=== PATIENT | male | born 1960 | race Caucasian/White ===

== ENCOUNTER → 2016-12-11 | Outpatient (CLI) | payer OTHER ==
[~2016-12-11] VITALS: Ht 182.9 cm; Wt 64.8 kg
[~2016-12-11] MED LIST: AMOX TR-K CLV1 EAC4 PO; AUGMENTIN875 MG PO; Aspirin E.C. PO; CARDIZEM CD120 MG PO; CARDIZEM90 MG PO; CEPHALEXIN500 MG PO; CIPRO500 MG PO; CIPROFLOXACIN500 M1 PO; COLACE100 MG PO; COUMADIN1 MG; COUMADIN1 MG PO; COUMADIN3 MG PO; COUMADIN5 MG PO; COUMADIN6 MG PO; Coumadin Protocol PO; DESYREL 150 MG150 MG PO; DESYREL100 MG PO; DUONEB 2.5-0.5 M3 ML AEROSOL; EASY COMFORT I1 EAC6 MC; ELIQUIS5 MG PO; FUROSEMIDE20 MG PO; FUROSEMIDE40 MG PO; GLUCOPHAGE XR1000 MG PO; HYDRALAZINE HCL50 MG PO; HYDROCODON-ACE1 EAC7 PO; IBUPROFEN400 MG PO; LANTUS 10100 UNITS/ SC; LEVEMIR100 UNIT/2 SC; LEVOFLOXACIN750 MG PO; LIPITOR80 MG PO; LISINOPRIL-HCT1 EAC3 PO; LISINOPRIL10 MG PO; LISINOPRIL2.5 MG PO; LISINOPRIL40 MG PO; LO-DOSE ASPIRIN81 M1 PO; LO-DOSE ASPIRIN81 M2 PO; LOPRESSOR25 MG PO; LOPRESSOR50 MG PO; METFORMIN HCL1000 M3 PO; METFORMIN HCL1000 MG PO; METFORMIN HCL500 MG PO; METOPROLOL SUCC25 MG PO; METOPROLOL TART25 MG PO; METOPROLOL TART50 MG PO; MORPHINE SULFAT15 M1 PO; MORPHINE SULFAT15 MG PO; MOVE IT ALONG100 MG PO; MYCOSTATIN1 APPLICAT TP; NEBULIZER MC; NICOTINE PATCH1 EAC2 TD; NORCO 5/3251 TABLET PO; NOVOLOG MI100 UNIT/M SC; OMNICEF300 MG PO; ONE TOUCH LANC1 EACH MC; ONE TOUCH ULTR1 EAC4 MC; ONE TOUCH ULTR1 EACH MC; OXAYDO5 MG PO; PLAVIX75 MG PO; PRAVACHOL40 MG PO; PRAVASTATIN SOD40 MG PO; PRAVASTATIN SOD80 MG PO; PREDNISONE10 MG PO; Plavix PO; SANTYL30 GM TP; SERTRALINE HCL50 MG PO; TRAZODONE HCL50 MG PO; TYLENOL ARTHRI650 MG PO; TYLENOL REGULA325 MG PO; VENTOLIN HFA18 GM IH; VITAMIN D-32000 UNI2 PO; VITAMIN D31000 UNI2 PO; WARFARIN SODIUM3 MG PO; XARELTO20 MG PO; ZESTORETIC 20-1 EACH PO; ZESTRIL20 MG PO; ZOLOFT50 MG PO
[2016-12-11 10:22] LABS: POINT-OF-CARE METER ID UU13113694
[2016-12-11 11:47] LABS: POINT-OF-CARE METER ID UU13113819
== END | disposition home or self-care (01) ==
LOC: AMB 09:09
PROVIDERS: Internal Medicine
DX: Z12.11 Encounter for screening for malignant neoplasm of colon (principal); D12.2 Benign neoplasm of ascending colon; D12.3 Benign neoplasm of transverse colon; D12.4 Benign neoplasm of descending colon; Z93.3 Colostomy status; E11.9 Type 2 diabetes mellitus without complications; I10 Essential (primary) hypertension; I48.91 Unspecified atrial fibrillation; Z79.01 Long term (current) use of anticoagulants; Z86.19 Personal history of other infectious and parasitic diseases; J44.9 Chronic obstructive pulmonary disease, unspecified; F17.200 Nicotine dependence, unspecified, uncomplicated; E78.5 Hyperlipidemia, unspecified; F79 Unspecified intellectual disabilities; I73.9 Peripheral vascular disease, unspecified; Z79.82 Long term (current) use of aspirin; Z79.84 Long term (current) use of oral hypoglycemic drugs; Z88.1 Allergy status to other antibiotic agents
CPT/HCPCS: 82948; 88305; J0360

== ENCOUNTER 2017-05-01 18:57 | Inpatient (IN) | payer OTHER ==
[~2017-05-01] VITALS: Ht 182.9 cm; Wt 70.2 kg
[2017-05-01 19:41] LABS: INTER. NORMALIZED RATIO 1.2; PROTHROMBIN TIME 13.7 SEC (10.2-12.9)
[2017-05-01 19:44] LABS: CHLORIDE 95 mEq/L (99-109); PTT 30.7 SEC (25-37); SODIUM 133 mEq/L (136-147)
[2017-05-01 19:46] LABS: EOSINOPHIL (%) 0.4 % (0-5); HEMATOCRIT 32.1 % (38.0-50.0); IMMATURE GRANULOCYTE (%) 0.6 % (0.0-0.7); IMMATURE GRANULOCYTE COUNT 0.1 K/uL; INSTRUMENT ABS NEUTROPHIL CT 8.2 K/uL; LYMPHOCYTE COUNT 0.9 K/uL (1.0-2.8); MCH 25.5 PG (29.0-34.0); MCHC 34.3 G/DL (30.0-36.0); MCV 74.3 FL (86-99); MONOCYTE COUNT 0.4 K/uL (0-0.8); NEUTROPHIL (%) 85.2 % (45-76); NEUTROPHIL COUNT 8.2 K/uL (1.8-6.4); PLATELET COUNT 297 K/uL (156-360); RBC DIS.WIDTH-CV 14.1 % (11.8-14.6); RBC DIS.WIDTH-SD 37.9 % (39-53); RED BLOOD COUNT 4.32 M/uL (4.00-5.50); WHITE BLOOD COUNT 9.7 K/uL (4.1-10.2)
[2017-05-01 19:47] LABS: GLUCOSE 129 mg/dL (70-99)
[2017-05-01 19:48] LABS: ANION GAP 13 MEQ/L (2-14); TOTAL BILIRUBIN 0.5 mg/dL (0.0-1.0)
[2017-05-01 19:50] LABS: ALKALINE PHOSPHATASE 92 IU/L (3-129); GFR ESTIMATE (CALCULATED) > 59 mL/min/
[2017-05-01 19:51] LABS: UREA NITROGEN (BUN) 69 mg/dL (9-23)
[2017-05-01 19:52] LABS: DIRECT BILIRUBIN 0.3 mg/dL (0.0-0.3)
[2017-05-01 19:54] LABS: LIPASE 19 U/L (1.0-51.0)
[2017-05-01 19:56] LABS: TROP-I INTERPRETATION NEGATIVE
[2017-05-01 20:07] LABS: POTASSIUM 1.9 mEq/L (3.7-5.4)
[2017-05-02 01:00] VITALS: BP 161/74
[2017-05-02 02:10] LABS: METH RESISTANT S AUREUS PCR POSITIVE (NEGATIVE)
[2017-05-02 02:30] LABS: MAGNESIUM 0.9 mg/dL (1.3-2.7)
[2017-05-02 02:30] LABS: PROBE CHECK PASS
[2017-05-02 03:30] VITALS: BP 140/68
[2017-05-02 07:46] LABS: Estimated Average Glucose 148 mg/dL (70-123); HEMOGLOBIN A1c (GLYCOHEMOGLOB) 6.8 % HGB (Below 5.7)
[2017-05-02 08:30] VITALS: BP 129/79
[2017-05-02 09:21] LABS: EOSINOPHIL (%) 2.2 % (0-5); EOSINOPHIL COUNT 0.2 K/uL (0-0.3); HEMATOCRIT 27.6 % (38.0-50.0); IMMATURE GRANULOCYTE (%) 0.4 % (0.0-0.7); INSTRUMENT ABS NEUTROPHIL CT 5.2 K/uL; LYMPHOCYTE COUNT 1.2 K/uL (1.0-2.8); MCH 25.2 PG (29.0-34.0); MCHC 33.3 G/DL (30.0-36.0); MCV 75.6 FL (86-99); MONOCYTE (%) 4.5 % (3-12); MONOCYTE COUNT 0.3 K/uL (0-0.8); NEUTROPHIL (%) 75.6 % (45-76); NEUTROPHIL COUNT 5.2 K/uL (1.8-6.4); PLATELET COUNT 230 K/uL (156-360); RBC DIS.WIDTH-CV 14.6 % (11.8-14.6); RBC DIS.WIDTH-SD 39.8 % (39-53); RED BLOOD COUNT 3.65 M/uL (4.00-5.50); WHITE BLOOD COUNT 6.9 K/uL (4.1-10.2)
[2017-05-02 09:54] LABS: ANION GAP 12 MEQ/L (2-14); CHLORIDE 105 MEQ/L (99-109); GFR ESTIMATE (CALCULATED) > 59 mL/min/; GLUCOSE 104 mg/dL (70-99); POTASSIUM 2.8 MEQ/L (3.7-5.4); SAMPLE HEMOLYSIS CHECK 0; SAMPLE ICTERIC CHECK 0; SAMPLE LIPEMIA CHECK 0; SODIUM 139 MEQ/L (136-147); UREA NITROGEN (BUN) 52 mg/dL (9-23)
[2017-05-02 12:15] VITALS: BP 135/76
[2017-05-02 16:47] VITALS: BP 135/60
[2017-05-02 18:09] LABS: ADD MIUA? YES; BILIRUBIN NEGATIVE; BLOOD MODERATE; COLOR YELLOW ((YELLOW)); GLUCOSE (STRIP) NEGATIVE; KETONES NEGATIVE; LEUKOCYTES SMALL; NITRITE NEGATIVE; PROTEIN (STRIP) 30; SPECIFIC GRAVITY 1.011 (1.000-1.030); UROBILINOGEN 0.2 MG/DL (0.2-1.0)
[2017-05-02 18:18] LABS: BACTERIA NONE SEEN /HPF; EPITHELIAL CELLS RARE /HPF; MUCUS NONE SEEN /LPF; RED BLOOD CELLS 0-5 /HPF (0-5); UCUL ADDED? NO; WHITE BLOOD CELLS 0-5 /HPF (0-5)
[2017-05-02 20:41] VITALS: BP 153/67
[2017-05-03 00:31] VITALS: BP 152/77
[2017-05-03 05:17] LABS: EOSINOPHIL (%) 2.3 % (0-5); EOSINOPHIL COUNT 0.2 K/uL (0-0.3); HEMATOCRIT 27.2 % (38.0-50.0); IMMATURE GRANULOCYTE (%) 0.5 % (0.0-0.7); INSTRUMENT ABS NEUTROPHIL CT 4.7 K/uL; LYMPHOCYTE COUNT 1.4 K/uL (1.0-2.8); MCHC 32.4 G/DL (30.0-36.0); MCV 77.3 FL (86-99); MEAN PLAT.VOLUME 9.2 uM^3 (9.0-12.4); MONOCYTE (%) 4.6 % (3-12); MONOCYTE COUNT 0.3 K/uL (0-0.8); NEUTROPHIL (%) 71.6 % (45-76); NEUTROPHIL COUNT 4.7 K/uL (1.8-6.4); PLATELET COUNT 210 K/uL (156-360); RBC DIS.WIDTH-CV 14.9 % (11.8-14.6); RED BLOOD COUNT 3.52 M/uL (4.00-5.50); WHITE BLOOD COUNT 6.6 K/uL (4.1-10.2)
[2017-05-03 05:45] LABS: ANION GAP 9 MEQ/L (2-14); CHLORIDE 105 MEQ/L (99-109); GFR ESTIMATE (CALCULATED) > 59 mL/min/; GLUCOSE 82 mg/dL (70-99); MAGNESIUM 1.3 mg/dl (1.3-2.7); SAMPLE HEMOLYSIS CHECK 0; SAMPLE ICTERIC CHECK 0; SAMPLE LIPEMIA CHECK 0; SODIUM 136 MEQ/L (136-147); UREA NITROGEN (BUN) 36 mg/dL (9-23)
[2017-05-03 05:57] VITALS: BP 126/63
[2017-05-03 08:07] VITALS: BP 140/83
[2017-05-03 08:21] LABS: POINT-OF-CARE USER ID ENVKC36
[2017-05-03 11:48] VITALS: BP 156/79
[2017-05-03 11:50] LABS: POINT-OF-CARE METER ID UU13113698; POINT-OF-CARE USER ID ENVKC36
[2017-05-03 15:11] LABS: MAGNESIUM 1.3 mg/dl (1.3-2.7); POTASSIUM 3.1 MEQ/L (3.7-5.4)
[2017-05-03 16:00] VITALS: BP 149/78
[2017-05-03 17:00] LABS: POINT-OF-CARE USER ID ENVKC36
[2017-05-03 20:08] VITALS: BP 153/67
[2017-05-04 00:29] VITALS: BP 118/84
[2017-05-04] MEDS ORDERED: DESYREL 150 MG150 MG PO (00:43)
[2017-05-04 04:17] VITALS: BP 116/75
[2017-05-04 07:55] LABS: POINT-OF-CARE METER ID UU13113781
[2017-05-04 08:00] VITALS: BP 124/68
[2017-05-04 08:32] LABS: HEMATOCRIT 25.6 % (38.0-50.0); MCH 25.4 PG (29.0-34.0); MCV 79.3 FL (86-99); PLATELET COUNT 197 K/uL (156-360); RBC DIS.WIDTH-CV 15.2 % (11.8-14.6); RBC DIS.WIDTH-SD 44.3 % (39-53); RED BLOOD COUNT 3.23 M/uL (4.00-5.50); WHITE BLOOD COUNT 6.3 K/uL (4.1-10.2)
[2017-05-04 09:20] LABS: ANION GAP 4 MEQ/L (2-14); CHLORIDE 109 MEQ/L (99-109); GFR ESTIMATE (CALCULATED) > 59 mL/min/; SAMPLE HEMOLYSIS CHECK 0; SAMPLE ICTERIC CHECK 0; SAMPLE LIPEMIA CHECK 0; SODIUM 137 MEQ/L (136-147); UREA NITROGEN (BUN) 32 mg/dL (9-23)
[2017-05-04 09:21] LABS: GLUCOSE 112 mg/dL (70-99); POTASSIUM 4.3 MEQ/L (3.7-5.4)
[2017-05-04 12:00] VITALS: BP 140/70
[2017-05-04 15:28] VITALS: BP 140/70
[2017-05-04 17:37] LABS: POINT-OF-CARE METER ID UU13113781
[2017-05-04 18:00] LABS: INTERNAL CONTROL VALID? YES
[2017-05-04 21:06] VITALS: BP 179/80
[2017-05-04 21:29] LABS: POINT-OF-CARE USER ID ENVMNS
[2017-05-05] VITALS (8 sets, daily range): BP systolic 148–233; BP diastolic 76–108
[2017-05-05 08:50] LABS: HEMATOCRIT 28.8 % (38.0-50.0); MCH 25.1 PG (29.0-34.0); MCHC 31.6 G/DL (30.0-36.0); MCV 79.6 FL (86-99); MEAN PLAT.VOLUME 9.3 uM^3 (9.0-12.4); PLATELET COUNT 210 K/uL (156-360); RBC DIS.WIDTH-CV 15.3 % (11.8-14.6); RBC DIS.WIDTH-SD 44.2 % (39-53); RED BLOOD COUNT 3.62 M/uL (4.00-5.50); WHITE BLOOD COUNT 8.8 K/uL (4.1-10.2)
[2017-05-05 10:07] LABS: ANION GAP 8 MEQ/L (2-14); CHLORIDE 112 MEQ/L (99-109); GFR ESTIMATE (CALCULATED) > 59 mL/min/; GLUCOSE 95 mg/dL (70-99); POTASSIUM 4.7 MEQ/L (3.7-5.4); SAMPLE HEMOLYSIS CHECK 0; SAMPLE ICTERIC CHECK 0; SAMPLE LIPEMIA CHECK 0; SODIUM 137 MEQ/L (136-147); UREA NITROGEN (BUN) 31 mg/dL (9-23)
[2017-05-05 21:10] LABS: POINT-OF-CARE METER ID UU13113781
[2017-05-06 01:00] VITALS: BP 152/70
[2017-05-06 04:12] VITALS: BP 142/75
[2017-05-06 09:00] VITALS: BP 196/91
[2017-05-06 12:30] VITALS: BP 133/73
[2017-05-06 17:00] VITALS: BP 130/78
[2017-05-06 19:57] VITALS: BP 106/68
[2017-05-07 00:47] VITALS: BP 140/61
[2017-05-07 04:26] VITALS: BP 139/74
[2017-05-07 05:55] LABS: EOSINOPHIL (%) 2.2 % (0-5); EOSINOPHIL COUNT 0.2 K/uL (0-0.3); HEMATOCRIT 25.2 % (38.0-50.0); IMMATURE GRANULOCYTE (%) 0.4 % (0.0-0.7); INSTRUMENT ABS NEUTROPHIL CT 5.4 K/uL; LYMPHOCYTE COUNT 1.7 K/uL (1.0-2.8); MCH 25.9 PG (29.0-34.0); MCHC 32.1 G/DL (30.0-36.0); MCV 80.5 FL (86-99); MEAN PLAT.VOLUME 9.4 uM^3 (9.0-12.4); MONOCYTE (%) 4.7 % (3-12); MONOCYTE COUNT 0.4 K/uL (0-0.8); NEUTROPHIL (%) 70.2 % (45-76); NEUTROPHIL COUNT 5.4 K/uL (1.8-6.4); PLATELET COUNT 253 K/uL (156-360); RBC DIS.WIDTH-CV 15.9 % (11.8-14.6); RBC DIS.WIDTH-SD 46.5 % (39-53); RED BLOOD COUNT 3.13 M/uL (4.00-5.50); WHITE BLOOD COUNT 7.6 K/uL (4.1-10.2)
[2017-05-07 07:21] LABS: ANION GAP 6 MEQ/L (2-14); CHLORIDE 114 MEQ/L (99-109); GFR ESTIMATE (CALCULATED) > 59 mL/min/; GLUCOSE 88 mg/dL (70-99); IRON 21 MCG/DL (35-150); POTASSIUM 4.1 MEQ/L (3.7-5.4); SAMPLE HEMOLYSIS CHECK 0; SAMPLE ICTERIC CHECK 0; SAMPLE LIPEMIA CHECK 0; SODIUM 139 MEQ/L (136-147); UREA NITROGEN (BUN) 25 mg/dL (9-23)
[2017-05-07 08:02] LABS: POINT-OF-CARE METER ID UU13113781
[2017-05-07 08:40] VITALS: BP 128/80
[2017-05-07 11:31] LABS: POINT-OF-CARE METER ID UU13113698
[2017-05-07 12:19] VITALS: BP 148/78
[2017-05-07 16:43] LABS: POINT-OF-CARE METER ID UU13113698
[2017-05-07 16:45] VITALS: BP 142/82
[2017-05-07 20:00] VITALS: BP 158/79
[2017-05-07 21:18] LABS: POINT-OF-CARE METER ID UU13113781
[2017-05-08] VITALS (7 sets, daily range): BP systolic 130–197; BP diastolic 80–89
[2017-05-08 08:07] LABS: POINT-OF-CARE METER ID UU13113781; POINT-OF-CARE USER ID ENVKC36
[2017-05-08 11:25] LABS: HEMATOCRIT 24.7 % (38.0-50.0); MCHC 30.8 G/DL (30.0-36.0); MCV 81.3 FL (86-99); MEAN PLAT.VOLUME 9.4 uM^3 (9.0-12.4); PLATELET COUNT 274 K/uL (156-360); RBC DIS.WIDTH-CV 16.2 % (11.8-14.6); RBC DIS.WIDTH-SD 47.9 % (39-53); RED BLOOD COUNT 3.04 M/uL (4.00-5.50); WHITE BLOOD COUNT 7.6 K/uL (4.1-10.2)
[2017-05-08 12:01] LABS: ANION GAP 5 MEQ/L (2-14); CHLORIDE 115 MEQ/L (99-109); GFR ESTIMATE (CALCULATED) > 59 mL/min/; GLUCOSE 121 mg/dL (70-99); SAMPLE HEMOLYSIS CHECK 0; SAMPLE ICTERIC CHECK 0; SAMPLE LIPEMIA CHECK 0; SODIUM 138 MEQ/L (136-147); UREA NITROGEN (BUN) 22 mg/dL (9-23)
[2017-05-08 12:11] LABS: POINT-OF-CARE METER ID UU13113803; POINT-OF-CARE USER ID ENVKC36
[2017-05-08 17:02] LABS: POINT-OF-CARE METER ID UU13113781; POINT-OF-CARE USER ID ENVKC36
[2017-05-08 21:27] LABS: POINT-OF-CARE METER ID UU13113803
[2017-05-09 03:35] VITALS: BP 151/83
[2017-05-09 08:12] LABS: POINT-OF-CARE METER ID UU13113781
[2017-05-09 09:10] VITALS: BP 168/78
[2017-05-09 09:17] LABS: POC NON-PRINT COM 1 ND
[2017-05-09 12:09] LABS: POINT-OF-CARE METER ID UU14117124
[2017-05-09 12:31] LABS: HEMATOCRIT 25.9 % (38.0-50.0); MCH 24.7 PG (29.0-34.0); MCHC 30.5 G/DL (30.0-36.0); MCV 80.9 FL (86-99); MEAN PLAT.VOLUME 9.3 uM^3 (9.0-12.4); PLATELET COUNT 296 K/uL (156-360); RBC DIS.WIDTH-CV 16.6 % (11.8-14.6); RBC DIS.WIDTH-SD 48.7 % (39-53); WHITE BLOOD COUNT 7.4 K/uL (4.1-10.2)
[2017-05-09 12:41] LABS: ANION GAP 6 MEQ/L (2-14); CHLORIDE 116 MEQ/L (99-109); POTASSIUM 4.8 MEQ/L (3.7-5.4); SAMPLE HEMOLYSIS CHECK 0; SAMPLE ICTERIC CHECK 0; SAMPLE LIPEMIA CHECK 0; SODIUM 139 MEQ/L (136-147)
[2017-05-09 12:47] LABS: GFR ESTIMATE (CALCULATED) > 59 mL/min/; GLUCOSE 130 mg/dL (70-99); UREA NITROGEN (BUN) 22 mg/dL (9-23)
[2017-05-09 16:19] VITALS: BP 146/88
[2017-05-09 16:21] LABS: POINT-OF-CARE METER ID UU14117124
[2017-05-09 20:45] VITALS: BP 209/88
[2017-05-09 21:40] LABS: POINT-OF-CARE METER ID UU14117124
[2017-05-10 00:54] VITALS: BP 140/88
[2017-05-10 05:35] LABS: HEMATOCRIT 22.8 % (38.0-50.0); MCH 25.4 PG (29.0-34.0); MCHC 31.1 G/DL (30.0-36.0); MCV 81.4 FL (86-99); MEAN PLAT.VOLUME 9.1 uM^3 (9.0-12.4); PLATELET COUNT 283 K/uL (156-360); RBC DIS.WIDTH-CV 17.1 % (11.8-14.6); RBC DIS.WIDTH-SD 50.4 % (39-53); WHITE BLOOD COUNT 8.1 K/uL (4.1-10.2)
[2017-05-10 07:15] LABS: POINT-OF-CARE METER ID UU14188577
[2017-05-10 10:24] VITALS: BP 189/87
[2017-05-10 11:53] LABS: POINT-OF-CARE METER ID UU14188577
[2017-05-10 13:50] VITALS: BP 152/82
[2017-05-10 17:32] LABS: POINT-OF-CARE METER ID UU14188577
[2017-05-10 20:23] VITALS: BP 140/94
[2017-05-10 23:44] VITALS: BP 129/58
[2017-05-11 03:42] VITALS: BP 142/91
[2017-05-11 06:29] LABS: EOSINOPHIL (%) 1.7 % (0-5); EOSINOPHIL COUNT 0.1 K/uL (0-0.3); HEMATOCRIT 23.9 % (38.0-50.0); IMMATURE GRANULOCYTE (%) 0.6 % (0.0-0.7); INSTRUMENT ABS NEUTROPHIL CT 4.7 K/uL; LYMPHOCYTE COUNT 1.7 K/uL (1.0-2.8); MCH 25.9 PG (29.0-34.0); MCHC 31.8 G/DL (30.0-36.0); MCV 81.6 FL (86-99); MEAN PLAT.VOLUME 9.3 uM^3 (9.0-12.4); MONOCYTE (%) 4.8 % (3-12); MONOCYTE COUNT 0.3 K/uL (0-0.8); NEUTROPHIL (%) 68.3 % (45-76); NEUTROPHIL COUNT 4.7 K/uL (1.8-6.4); PLATELET COUNT 338 K/uL (156-360); RBC DIS.WIDTH-CV 17.3 % (11.8-14.6); RED BLOOD COUNT 2.93 M/uL (4.00-5.50); WHITE BLOOD COUNT 6.9 K/uL (4.1-10.2)
[2017-05-11 07:01] LABS: ALKALINE PHOSPHATASE 70 IU/L (3-129); ANION GAP 7 MEQ/L (2-14); CHLORIDE 118 MEQ/L (99-109); GFR ESTIMATE (CALCULATED) > 59 mL/min/; POTASSIUM 4.9 MEQ/L (3.7-5.4); SAMPLE HEMOLYSIS CHECK 0; SAMPLE ICTERIC CHECK 0; SAMPLE LIPEMIA CHECK 0; SODIUM 142 MEQ/L (136-147); TOTAL BILIRUBIN 0.2 MG/DL (0.0-1.0); UREA NITROGEN (BUN) 21 mg/dL (9-23)
[2017-05-11 07:07] LABS: GLUCOSE 81 mg/dL (70-99)
[2017-05-11 08:21] VITALS: BP 144/88
[2017-05-11 12:01] VITALS: BP 158/84
[2017-05-11 12:14] LABS: POINT-OF-CARE METER ID UU14208753
[2017-05-11 16:02] VITALS: BP 190/92
[2017-05-11 20:29] VITALS: BP 150/80
[2017-05-11 23:50] VITALS: BP 148/72
[2017-05-12 06:52] VITALS: BP 148/62
[2017-05-12 08:15] LABS: HEMATOCRIT 24.1 % (38.0-50.0); MCH 25.3 PG (29.0-34.0); MCHC 31.1 G/DL (30.0-36.0); MCV 81.4 FL (86-99); PLATELET COUNT 325 K/uL (156-360); RBC DIS.WIDTH-CV 17.4 % (11.8-14.6); RED BLOOD COUNT 2.96 M/uL (4.00-5.50)
[2017-05-12 08:54] LABS: ANION GAP 8 MEQ/L (2-14); CHLORIDE 117 MEQ/L (99-109); GFR ESTIMATE (CALCULATED) > 59 mL/min/; GLUCOSE 82 mg/dL (70-99); POTASSIUM 4.5 MEQ/L (3.7-5.4); SAMPLE HEMOLYSIS CHECK 0; SAMPLE ICTERIC CHECK 0; SAMPLE LIPEMIA CHECK 0; SODIUM 142 MEQ/L (136-147); UREA NITROGEN (BUN) 17 mg/dL (9-23)
[2017-05-12 11:47] LABS: POINT-OF-CARE METER ID UU14208753
[2017-05-12 14:08] LABS: ABSOLUTE RETICULOCYTE CT. 0.1 M/uL (0.02-0.08); IMM.RETIC FRACTION 18.1 % (3-19); RETIC HGB EQUIVALENT 31.3 (28-36); RETICULOCYTE COUNT 2.1 % (0.5-1.8)
[2017-05-12 15:11] LABS: BASE EXCESS -5.5 mEq/L (-3 to +3); BICARBONATE 17.9 mEq/L (22-26); COMMENTS - BLOOD GASES A+C+; METHEMOGLOBIN 1.7 % (0-1.5); PCO2 27 mm Hg (35-45); PO2 66 mm Hg (80-100); SITE LB; pH 7.43 (7.35-7.45)
[2017-05-12 15:12] LABS: TOTAL RESP RATE 16 resp/min
[2017-05-12 18:35] LABS: POINT-OF-CARE METER ID UU14188577
[2017-05-12 23:17] LABS: POINT-OF-CARE METER ID UU14188577
[2017-05-12 23:54] VITALS: BP 172/85
[2017-05-13 05:55] VITALS: BP 120/78
[2017-05-13 06:17] LABS: POINT-OF-CARE METER ID UU14188577
[2017-05-13 08:35] LABS: HEMATOCRIT 22.7 % (38.0-50.0); MCH 26.5 PG (29.0-34.0); MCHC 32.2 G/DL (30.0-36.0); MCV 82.5 FL (86-99); MEAN PLAT.VOLUME 9.7 uM^3 (9.0-12.4); PLATELET COUNT 329 K/uL (156-360); RBC DIS.WIDTH-SD 53.1 % (39-53); RED BLOOD COUNT 2.75 M/uL (4.00-5.50); WHITE BLOOD COUNT 7.1 K/uL (4.1-10.2)
[2017-05-13 08:55] VITALS: BP 136/70
[2017-05-13 08:59] LABS: ANION GAP 7 MEQ/L (2-14); CHLORIDE 116 MEQ/L (99-109); GFR ESTIMATE (CALCULATED) > 59 mL/min/; GLUCOSE 85 mg/dL (70-99); POTASSIUM 4.1 MEQ/L (3.7-5.4); SAMPLE HEMOLYSIS CHECK 0; SAMPLE ICTERIC CHECK 0; SAMPLE LIPEMIA CHECK 0; SODIUM 143 MEQ/L (136-147); UREA NITROGEN (BUN) 14 mg/dL (9-23)
[2017-05-13 12:27] LABS: POINT-OF-CARE METER ID UU14188577
[2017-05-13 19:53] VITALS: BP 180/90
[2017-05-13 22:19] LABS: POINT-OF-CARE METER ID UU14208753
[2017-05-13 23:04] VITALS: BP 161/79
[2017-05-14] VITALS (7 sets, daily range): BP systolic 131–188; BP diastolic 65–90
[2017-05-14 07:14] LABS: HEMATOCRIT 23.6 % (38.0-50.0); MCH 26.3 PG (29.0-34.0); MCHC 32.2 G/DL (30.0-36.0); MCV 81.7 FL (86-99); MEAN PLAT.VOLUME 9.5 uM^3 (9.0-12.4); PLATELET COUNT 343 K/uL (156-360); RBC DIS.WIDTH-CV 17.9 % (11.8-14.6); RBC DIS.WIDTH-SD 52.2 % (39-53); RED BLOOD COUNT 2.89 M/uL (4.00-5.50); WHITE BLOOD COUNT 6.7 K/uL (4.1-10.2)
[2017-05-14 10:16] LABS: TYPE OF FLUID PLEURAL
[2017-05-14 10:20] LABS: TYPE OF FLUID PLEURAL
[2017-05-14 10:54] LABS: LACTATE DEHYDROGENASE 226 IU/L (20-246)
[2017-05-14 10:55] LABS: GLUCOSE 112 mg/dL (70-99)
[2017-05-14 11:20] LABS: BODY FLUID LDH 55 IU/L; BODY FLUID PROTEIN < 3.0 G/DL
[2017-05-14 11:38] LABS: BODY FLUID EOSINOPHILS 0 % (0-25); BODY FLUID RBC'S < 1000 /MM^3 (0-100); BODY FLUID WBC'S 73 /MM^3 (0-500); MONONUCLEAR WBC'S 22 %; POLYNUCLEAR WBC'S 78 % (0-25)
[2017-05-14 11:42] LABS: POINT-OF-CARE METER ID UU14188577
[2017-05-14 11:49] LABS: BODY FLUID LDH 55 IU/L; BODY FLUID PROTEIN < 3.0 G/DL
[2017-05-14 11:51] LABS: BODY FLUID EOSINOPHILS 4 % (0-25); BODY FLUID RBC'S < 1000 /MM^3 (0-100); BODY FLUID WBC'S 144 /MM^3 (0-500); MONONUCLEAR WBC'S 18 %; POLYNUCLEAR WBC'S 78 % (0-25)
[2017-05-14 16:36] LABS: POINT-OF-CARE METER ID UU14188577
[2017-05-15 04:06] VITALS: BP 118/65
[2017-05-15 07:06] LABS: POINT-OF-CARE METER ID UU14117124
[2017-05-15 08:16] VITALS: BP 128/57
[2017-05-15 10:43] LABS: MCH 25.6 PG (29.0-34.0); MCHC 30.8 G/DL (30.0-36.0); MCV 83.1 FL (86-99); MEAN PLAT.VOLUME 9.3 uM^3 (9.0-12.4); PLATELET COUNT 343 K/uL (156-360); RBC DIS.WIDTH-CV 18.3 % (11.8-14.6); RBC DIS.WIDTH-SD 54.1 % (39-53); RED BLOOD COUNT 3.01 M/uL (4.00-5.50); WHITE BLOOD COUNT 7.6 K/uL (4.1-10.2)
[2017-05-15 11:18] LABS: ANION GAP 8 MEQ/L (2-14); CHLORIDE 108 MEQ/L (99-109); SAMPLE HEMOLYSIS CHECK 1; SAMPLE ICTERIC CHECK 0; SAMPLE LIPEMIA CHECK 0; SODIUM 138 MEQ/L (136-147)
[2017-05-15 11:24] LABS: GFR ESTIMATE (CALCULATED) > 59 mL/min/; GLUCOSE 96 mg/dL (70-99); UREA NITROGEN (BUN) 14 mg/dL (9-23)
[2017-05-15 11:38] LABS: POINT-OF-CARE METER ID UU14188577
[2017-05-15 16:20] LABS: POINT-OF-CARE METER ID UU14188577
[2017-05-15 16:56] VITALS: BP 158/86
[2017-05-15 20:18] VITALS: BP 164/78
[2017-05-15 21:33] LABS: POINT-OF-CARE METER ID UU14188577
[2017-05-16] VITALS (14 sets, daily range): BP systolic 124–202; BP diastolic 60–95
[2017-05-16 04:16] LABS: BODY FLUID PH 8.3 (())
[2017-05-16 07:08] LABS: HEMATOCRIT 20.8 % (38.0-50.0); MCH 25.8 PG (29.0-34.0); MCHC 31.3 G/DL (30.0-36.0); MCV 82.5 FL (86-99); MEAN PLAT.VOLUME 9.2 uM^3 (9.0-12.4); PLATELET COUNT 334 K/uL (156-360); RBC DIS.WIDTH-CV 18.3 % (11.8-14.6); RBC DIS.WIDTH-SD 54.4 % (39-53); RED BLOOD COUNT 2.52 M/uL (4.00-5.50); WHITE BLOOD COUNT 7.5 K/uL (4.1-10.2)
[2017-05-16 07:24] LABS: ANION GAP 6 MEQ/L (2-14); CHLORIDE 109 MEQ/L (99-109); GFR ESTIMATE (CALCULATED) > 59 mL/min/; GLUCOSE 67 mg/dL (70-99); POTASSIUM 3.7 MEQ/L (3.7-5.4); SAMPLE HEMOLYSIS CHECK 0; SAMPLE ICTERIC CHECK 0; SAMPLE LIPEMIA CHECK 0; SODIUM 138 MEQ/L (136-147); UREA NITROGEN (BUN) 14 mg/dL (9-23)
[2017-05-16 11:59] LABS: POINT-OF-CARE METER ID UU14117124
[2017-05-16 22:29] LABS: MCV 82.4 FL (86-99)
[2017-05-17 04:00] VITALS: BP 154/72
[2017-05-17 07:16] LABS: POINT-OF-CARE METER ID UU14208753
[2017-05-17 07:18] VITALS: BP 150/80
[2017-05-17 11:24] VITALS: BP 160/70
[2017-05-17 12:34] LABS: POINT-OF-CARE METER ID UU14188577
[2017-05-17 16:00] VITALS: BP 155/65
[2017-05-17 17:09] LABS: POINT-OF-CARE METER ID UU14208753
[2017-05-17 19:21] VITALS: BP 158/66
[2017-05-17 21:20] LABS: POINT-OF-CARE METER ID UU14117124
[2017-05-18] VITALS (8 sets, daily range): BP systolic 150–190; BP diastolic 70–100
[2017-05-18 06:37] LABS: POINT-OF-CARE METER ID UU14208753
[2017-05-18 11:02] LABS: HEMATOCRIT 32.9 % (38.0-50.0); MCH 26.7 PG (29.0-34.0); MCV 86.1 FL (86-99); MEAN PLAT.VOLUME 9.2 uM^3 (9.0-12.4); PLATELET COUNT 381 K/uL (156-360); RBC DIS.WIDTH-CV 18.8 % (11.8-14.6); WHITE BLOOD COUNT 8.8 K/uL (4.1-10.2)
[2017-05-18 11:04] LABS: RED BLOOD COUNT 3.82 M/uL (4.00-5.50)
[2017-05-18 11:37] LABS: ANION GAP 6 MEQ/L (2-14); CHLORIDE 108 MEQ/L (99-109); GFR ESTIMATE (CALCULATED) > 59 mL/min/; SAMPLE HEMOLYSIS CHECK 2; SAMPLE ICTERIC CHECK 0; SAMPLE LIPEMIA CHECK 0; SODIUM 139 MEQ/L (136-147); UREA NITROGEN (BUN) 15 mg/dL (9-23)
[2017-05-18 11:38] LABS: GLUCOSE 123 mg/dL (70-99); POTASSIUM 4.5 MEQ/L (3.7-5.4)
[2017-05-18 16:25] LABS: POINT-OF-CARE METER ID UU14117124
[2017-05-19 04:06] VITALS: BP 127/65
[2017-05-19 06:58] LABS: POINT-OF-CARE METER ID UU14117124
[2017-05-19 07:55] VITALS: BP 136/71; BP 163/71
[2017-05-19 10:32] LABS: HEMATOCRIT 29.9 % (38.0-50.0); MCH 27.7 PG (29.0-34.0); MCHC 32.1 G/DL (30.0-36.0); MCV 86.2 FL (86-99); MEAN PLAT.VOLUME 9.7 uM^3 (9.0-12.4); PLATELET COUNT 377 K/uL (156-360); RBC DIS.WIDTH-CV 19.5 % (11.8-14.6); RBC DIS.WIDTH-SD 60.6 % (39-53); RED BLOOD COUNT 3.47 M/uL (4.00-5.50); WHITE BLOOD COUNT 9.1 K/uL (4.1-10.2)
[2017-05-19 11:02] LABS: ANION GAP 10 MEQ/L (2-14); CHLORIDE 109 MEQ/L (99-109); GFR ESTIMATE (CALCULATED) > 59 mL/min/; GLUCOSE 116 mg/dL (70-99); POTASSIUM 4.5 MEQ/L (3.7-5.4); SAMPLE HEMOLYSIS CHECK 0; SAMPLE ICTERIC CHECK 0; SAMPLE LIPEMIA CHECK 0; SODIUM 139 MEQ/L (136-147); UREA NITROGEN (BUN) 17 mg/dL (9-23)
[2017-05-19 11:19] LABS: POINT-OF-CARE METER ID UU14208753
[2017-05-19 11:38] VITALS: BP 146/76
[2017-05-19 15:39] VITALS: BP 156/70
[2017-05-19 16:07] LABS: POINT-OF-CARE METER ID UU14208753
[2017-05-19 19:56] VITALS: BP 148/62
[2017-05-19 22:02] LABS: POINT-OF-CARE METER ID UU14208753
[2017-05-19 23:24] VITALS: BP 146/70
[2017-05-20 06:33] VITALS: BP 140/162
[2017-05-20 06:48] LABS: POINT-OF-CARE METER ID UU14117124
[2017-05-20 07:52] VITALS: BP 175/89
[2017-05-20 09:32] LABS: HEMATOCRIT 31.2 % (38.0-50.0); MCH 27.3 PG (29.0-34.0); MCHC 31.7 G/DL (30.0-36.0); MEAN PLAT.VOLUME 9.2 uM^3 (9.0-12.4); PLATELET COUNT 364 K/uL (156-360); RBC DIS.WIDTH-CV 19.6 % (11.8-14.6); RBC DIS.WIDTH-SD 60.7 % (39-53); RED BLOOD COUNT 3.63 M/uL (4.00-5.50); WHITE BLOOD COUNT 8.6 K/uL (4.1-10.2)
[2017-05-20 09:53] LABS: ANION GAP 7 MEQ/L (2-14); CHLORIDE 107 MEQ/L (99-109); GFR ESTIMATE (CALCULATED) > 59 mL/min/; GLUCOSE 130 mg/dL (70-99); POTASSIUM 4.7 MEQ/L (3.7-5.4); SAMPLE HEMOLYSIS CHECK 0; SAMPLE ICTERIC CHECK 0; SAMPLE LIPEMIA CHECK 0; SODIUM 139 MEQ/L (136-147); UREA NITROGEN (BUN) 17 mg/dL (9-23)
[2017-05-20 11:30] LABS: POINT-OF-CARE METER ID UU14117124
[2017-05-20 11:47] VITALS: BP 165/78
[2017-05-20 15:56] LABS: POINT-OF-CARE METER ID UU14117124
[2017-05-20 16:32] VITALS: BP 161/72
[2017-05-20 21:17] VITALS: BP 148/77
[2017-05-20 21:35] LABS: POINT-OF-CARE METER ID UU14208753
[2017-05-20 23:46] VITALS: BP 136/72
[2017-05-21 02:55] VITALS: BP 134/64
[2017-05-21 07:29] VITALS: BP 142/64
[2017-05-21 15:31] VITALS: BP 138/64
[2017-05-21 21:44] VITALS: BP 138/75
[2017-05-21 22:06] LABS: POINT-OF-CARE METER ID UU14117124
[2017-05-22] VITALS (7 sets, daily range): BP systolic 118–148; BP diastolic 64–76
[2017-05-22 06:20] LABS: POINT-OF-CARE METER ID UU14188577
[2017-05-22 12:38] LABS: POINT-OF-CARE METER ID UU14117124
[2017-05-22 16:31] LABS: POINT-OF-CARE METER ID UU14117124
[2017-05-22 21:59] LABS: POINT-OF-CARE METER ID UU14188577
[2017-05-23 03:58] VITALS: BP 122/76
[2017-05-23 06:41] LABS: POINT-OF-CARE METER ID UU14117124
[2017-05-23 08:05] VITALS: BP 143/73
[2017-05-23 11:21] LABS: POINT-OF-CARE METER ID UU14208753
[2017-05-23 16:09] VITALS: BP 150/75
[2017-05-23 16:46] LABS: POINT-OF-CARE METER ID UU14188577
[2017-05-23 19:28] VITALS: BP 144/76
[2017-05-23 21:35] LABS: POINT-OF-CARE METER ID UU14188577
[2017-05-24 00:09] VITALS: BP 140/66
[2017-05-24 03:31] VITALS: BP 110/58
[2017-05-24 06:21] LABS: POINT-OF-CARE METER ID UU14117124
[2017-05-24 07:55] VITALS: BP 132/63
[2017-05-24 11:55] VITALS: BP 138/67
[2017-05-24] MEDS ORDERED: BUPROPION HCL150 M2 PO (14:18)
[2017-05-24] MEDS ORDERED: SANTYL30 GM TP (14:18)
[2017-05-24] MEDS ORDERED: ADVAIR HFA120 INHALA IH (14:18)
[2017-05-24] MEDS ORDERED: FERROUS SULFAT325 MG PO (14:18)
[2017-05-24] MEDS ORDERED: NICORELIEF2 MG BC (14:18)
[2017-05-24] MEDS ORDERED: ZINC OXIDE56.7 GM TP (14:18)
[2017-05-24] MEDS ORDERED: VITAMIN D2000 UNI1 PO (14:18)
[2017-05-24] MEDS ORDERED: LISINOPRIL40 MG PO (14:18)
[2017-05-24] MEDS ORDERED: FOLIC ACID1 MG PO (14:18)
[2017-05-24] MEDS ORDERED: AMLODIPINE BESY10 MG PO (14:18)
[2017-05-24] MEDS ORDERED: HYDROCHLOROTHIA25 MG PO (14:18)
[2017-05-24] MEDS ORDERED: NICOTINE PATCH1 EAC2 TD (14:18)
[2017-05-24] MEDS ORDERED: LOPRESSOR50 MG PO (14:18)
[2017-05-24] MEDS ORDERED: FUROSEMIDE20 MG PO (14:18)
[2017-05-24 16:04] VITALS: BP 151/71
== END 2017-05-24 17:02 | DRG 393 ==
LOC: EME 18:57 → EDOF 23:12 → 4EAST 23:12 → 3EAST 23:12 → ENRESERV 23:13 → 4EAST 05-02 00:41 → ENRESERV 05-09 09:02 → 3EAST 05-09 09:29
PROVIDERS: Emergency Medicine; Hospitalist; Internal Medicine; Internal Medicine Hematology & Oncology; Nurse Practitioner Adult Health; Physician Assistant; Radiology Diagnostic Radiology
DX: K94.02 Colostomy infection (principal); L03.311 Cellulitis of abdominal wall; E43 Unspecified severe protein-calorie malnutrition; E11.628 Type 2 diabetes mellitus with other skin complications; L03.317 Cellulitis of buttock; N48.1 Balanitis; I11.0 Hypertensive heart disease with heart failure; I50.23 Acute on chronic systolic (congestive) heart failure; R64 Cachexia; Z68.1 Body mass index [BMI] 19.9 or less, adult; L89.311 Pressure ulcer of right buttock, stage 1; L89.329 Pressure ulcer of left buttock, unspecified stage; L89.892 Pressure ulcer of other site, stage 2; L89.510 Pressure ulcer of right ankle, unstageable; E87.2 Acidosis; I48.0 Paroxysmal atrial fibrillation; I42.9 Cardiomyopathy, unspecified; G54.6 Phantom limb syndrome with pain; E86.0 Dehydration; E87.6 Hypokalemia; E11.51 Type 2 diabetes mellitus with diabetic peripheral angiopathy without gangrene; E83.51 Hypocalcemia; D63.8 Anemia in other chronic diseases classified elsewhere; R62.7 Adult failure to thrive; B35.6 Tinea cruris; L25.9 Unspecified contact dermatitis, unspecified cause; I25.10 Atherosclerotic heart disease of native coronary artery without angina pectoris; J44.9 Chronic obstructive pulmonary disease, unspecified; R91.8 Other nonspecific abnormal finding of lung field; E78.5 Hyperlipidemia, unspecified; F43.20 Adjustment disorder, unspecified; F32.9 Major depressive disorder, single episode, unspecified; M62.519 Muscle wasting and atrophy, not elsewhere classified, unspecified shoulder; M62.561 Muscle wasting and atrophy, not elsewhere classified, right lower leg; N36.0 Urethral fistula; N48.89 Other specified disorders of penis; E53.8 Deficiency of other specified B group vitamins; F17.210 Nicotine dependence, cigarettes, uncomplicated; F10.10 Alcohol abuse, uncomplicated; Z60.2 Problems related to living alone; Z86.718 Personal history of other venous thrombosis and embolism; Z86.73 Personal history of transient ischemic attack (TIA), and cerebral infarction without residual deficits; Z95.1 Presence of aortocoronary bypass graft; Z95.820 Peripheral vascular angioplasty status with implants and grafts; Z89.612 Acquired absence of left leg above knee; Z90.79 Acquired absence of other genital organ(s); Z79.01 Long term (current) use of anticoagulants; Z79.84 Long term (current) use of oral hypoglycemic drugs; Z91.14 Patient's other noncompliance with medication regimen; Z74.01 Bed confinement status; Z83.3 Family history of diabetes mellitus; Z22.322 Carrier or suspected carrier of Methicillin resistant Staphylococcus aureus; Z75.1 Person awaiting admission to adequate facility elsewhere
CPT/HCPCS: 36600; 71010; 71020; 71275; 76942; 80048; 80053; 80076; 81003; 82040; 82272; 82306; 82607; 82728; 82746; 82803; 82945; 82947; 82948; 83036; 83540; 83605; 83615; 83615 91; 83690; 83735; 83880; 83986 90; 84100; 84132 91; 84155; 84157; 84466; 84484; 85014; 85018; 85025; 85027; 85045; 85610; 85730; 86900; 86901; 86920; 87040; 87070; 87075; 87116; 87205; 87206; 87641; 88108; 88305; 89051; 93005; 93306; 94640; 94640 76; 97530 GO; 97530 GP; 99281; 99285; J0360; J0696; J0881; J1644; J1756; J1815; J1940; J2270; J2405; J3370; J3475; J3480; J7030; J7050; P9016; S0028